=== PATIENT | male | born 1980 | race Caucasian/White ===

== ENCOUNTER → 2019-04-04 | Outpatient (CLI) | payer OTHER ==
[~2019-04-04] MED LIST: CEPHALEXIN500 M1 PO; HYDROCODONE BIT1 T11 PO; MOTRIN800 MG PO; NORFLEX100 MG PO; PREDNICOT20 MG PO
== END | disposition home or self-care (01) ==
LOC: MRI 13:51
DX: M47.812 Spondylosis without myelopathy or radiculopathy, cervical region (principal)

== ENCOUNTER → 2019-04-15 | Outpatient (CLI) | payer OTHER | END | disposition home or self-care (01) | LOC: RAD 10:15 | DX: M25.511 Pain in right shoulder (principal) ==

== ENCOUNTER → 2019-05-09 | Outpatient (CLI) | payer OTHER ==
[2019-05-09 09:04] LABS: BASO % 0.4 % (0.0-1.0); EOS % 0.1 % (1.0-4.0); HEMATOCRIT 47.5 % (42.0-52.0); HEMOGLOBIN 16.2 g/dl (14.0-18.0); LYMPH # 1.2 10*3/uL (1.3-4.4); LYMPH % 17.7 % (27.0-41.0); MEAN CELL VOLUME 91.7 fl (80.0-94.0); MEAN CORPUSCULAR HGB 31.3 pg (27.0-31.0); MEAN CORPUSCULAR HGB CONC 34.1 g/dl (33.0-37.0); MONO # 0.3 10*3/uL (0.1-1.0); MONO % 4.7 % (3.0-9.0); NEUT # 5.2 10*3/uL (2.3-7.9); NEUT % 76.8 % (47.0-73.0); PLATELET COUNT AUTOMATED 200 10*3/uL (130-400); RED BLOOD COUNT 5.18 10*6/uL (4.50-5.90); RED CELL DISTRI WIDTH 12.7 % (0-14.5); WHITE BLOOD COUNT 6.8 10*3/uL (4.8-10.8)
[2019-05-09 09:52] LABS: ALBUMIN 4.5 gm/dl (3.1-4.5); BUN 11 mg/dl (7-24); CHLORIDE 102 mmol/L (98-107); SODIUM 139 mmol/L (136-145)
[2019-05-09 09:54] LABS: CPK 453 U/L (39-308)
[2019-05-09 10:02] LABS: ALKALINE PHOSPHATASE 42 U/L (45-117); CHOLESTEROL 189 mg/dL (<200); CREATININE 1.19 mg/dL (0.70-1.30); HDL CHOLESTEROL 49 mg/dl (40-60); IRON 105 ug/dL (65-175); LDL CHOLESTEROL 129 mg/dL (9-159); SGOT/AST 41 IU/L (3-35); SGPT/ALT 55 U/L (12-78); TOTAL IRON BINDING CAPACITY 360 ug/dl (250-450); TOTAL PROTEIN 8.1 gm/dL (6.4-8.2); TRIGLYCERIDES 55 mg/dl (<150); VLDL CHOLESTEROL 11 mg/dL (6-40)
[2019-05-09 10:41] LABS: VITAMIN D, 25-HYDROXY 24.7 ng/mL (30-100)
[2019-05-10 16:06] LABS: FREE KAPPA LIGHT CHAINS 7.6 mg/L (3.3-19.4); FREE LAMBDA LIGHT CHAINS 10.2 mg/L (5.7-26.3); KAPPA/LAMBDA RATIO 0.75 (0.26-1.65)
[2019-05-14 14:07] LABS: HU ANTIBODIES <1:10 titer (.)
== END | disposition home or self-care (01) ==
LOC: LAB 08:47
PROVIDERS: Nurse Practitioner Family
DX: Z13.220 Encounter for screening for lipoid disorders (principal); E55.9 Vitamin D deficiency, unspecified; M62.81 Muscle weakness (generalized); R53.83 Other fatigue; D64.9 Anemia, unspecified

== ENCOUNTER → 2019-08-08 | Outpatient (CLI) | payer OTHER | END | disposition home or self-care (01) | LOC: MRI 08-06 11:00 | DX: G12.20 Motor neuron disease, unspecified (principal) ==

== ENCOUNTER → 2020-03-22 | Outpatient (CLI) | payer OTHER | END | disposition home or self-care (01) | LOC: COVID19 11:20 | PROVIDERS: ATTEND Family Medicine | DX: U07.1 COVID-19 (principal) ==

== ENCOUNTER → 2020-05-28 | Outpatient (CLI) | payer OTHER ==
[2020-05-28 14:30] LABS: BASO % 0.5 % (0.0-1.0); EOS # 0.1 10*3/uL (0.0-0.4); EOS % 1.1 % (1.0-4.0); HEMATOCRIT 45.8 % (42.0-52.0); LYMPH # 1.5 10*3/uL (1.3-4.4); LYMPH % 27.3 % (27.0-41.0); MEAN CELL VOLUME 91.6 fl (80.0-94.0); MEAN CORPUSCULAR HGB CONC 33.8 g/dl (33.0-37.0); MEAN PLATELET VOLUME 10.5 fl (9.6-12.3); MONO # 0.5 10*3/uL (0.1-1.0); MONO % 9.7 % (3.0-9.0); NEUT # 3.4 10*3/uL (2.3-7.9); NEUT % 61.2 % (47.0-73.0); PLATELET COUNT AUTOMATED 183 10*3/uL (130-400); RED CELL DISTRI WIDTH 13.7 % (0-14.5); WHITE BLOOD COUNT 5.6 10*3/uL (4.8-10.8)
[2020-05-28 15:02] LABS: ALBUMIN 4.1 gm/dl (3.1-4.5); BUN 12 mg/dl (7-24); CHLORIDE 106 mmol/L (98-107); CHOLESTEROL 188 mg/dL (<200); CREATININE 0.86 mg/dL (0.70-1.30); HDL CHOLESTEROL 49 mg/dl (40-60); LDL CHOLESTEROL 128 mg/dL (9-159); POTASSIUM 3.7 mmol/L (3.5-5.1); SGOT/AST 38 IU/L (3-35); SGPT/ALT 69 U/L (12-78); SODIUM 141 mmol/L (136-145); TOTAL PROTEIN 7.7 gm/dL (6.4-8.2); TRIGLYCERIDES 55 mg/dl (<150); VLDL CHOLESTEROL 11 mg/dL (6-40)
[2020-05-28 15:10] LABS: ALKALINE PHOSPHATASE 39 U/L (45-117)
[2020-05-28 15:21] LABS: VITAMIN D, 25-HYDROXY 23.4 ng/mL (30-100)
== END | disposition home or self-care (01) ==
LOC: LAB 13:45
PROVIDERS: ATTEND Physician Assistant
DX: M25.511 Pain in right shoulder (principal); M54.2 Cervicalgia; G12.21 Amyotrophic lateral sclerosis; M62.81 Muscle weakness (generalized)

== ENCOUNTER → 2020-07-22 | Outpatient (CLI) | payer OTHER | LOC: LAB 09:25 | PROVIDERS: ATTEND Psychiatry & Neurology Clinical Neurophysiology | DX: G12.21 Amyotrophic lateral sclerosis (principal) ==

== ENCOUNTER → 2020-12-04 | Outpatient (CLI) | payer OTHER, MEDICARE | END | disposition home or self-care (01) | LOC: LAB 12-03 14:40 | PROVIDERS: ATTEND Chiropractor | DX: A69.20 Lyme disease, unspecified (principal) ==

== ENCOUNTER → 2021-04-15 | Outpatient (CLI) | payer MEDICARE, MEDICAID ==
[2021-04-15 12:34] LABS: BASO % 0.5 % (0.0-1.0); EOS # 0.1 10*3/uL (0.0-0.4); EOS % 1.2 % (1.0-4.0); HEMATOCRIT 45.9 % (42.0-52.0); LYMPH # 1.1 10*3/uL (1.3-4.4); LYMPH % 20.1 % (27.0-41.0); MEAN CELL VOLUME 89.1 fl (80.0-94.0); MEAN CORPUSCULAR HGB 30.5 pg (27.0-31.0); MEAN CORPUSCULAR HGB CONC 34.2 g/dl (33.0-37.0); MEAN PLATELET VOLUME 9.9 fl (9.6-12.3); MONO # 0.5 10*3/uL (0.1-1.0); MONO % 7.9 % (3.0-9.0); NEUT % 70.1 % (47.0-73.0); PLATELET COUNT AUTOMATED 197 10*3/uL (130-400); RED BLOOD COUNT 5.15 10*6/uL (4.50-5.90); RED CELL DISTRI WIDTH 13.1 % (0-14.5); WHITE BLOOD COUNT 5.7 10*3/uL (4.8-10.8)
[2021-04-15 12:51] LABS: ALBUMIN 4.2 gm/dl (3.1-4.5); TOTAL PROTEIN 7.7 gm/dL (6.4-8.2)
[2021-04-15 12:54] LABS: ALBUMIN 4.2 gm/dl (3.1-4.5); ALKALINE PHOSPHATASE 40 U/L (45-117); BUN 11 mg/dl (7-24); CHLORIDE 104 mmol/L (98-107); CREATININE 0.75 mg/dL (0.70-1.30); IRON 119 ug/dL (65-175); POTASSIUM 3.6 mmol/L (3.5-5.1); SGOT/AST 28 IU/L (3-35); SGPT/ALT 40 U/L (12-78); SODIUM 136 mmol/L (136-145); T3 UPTAKE 37 % (31-39); THYROXINE (T4) TOTAL 9.2 ug/dl (4.5-12.1); TOTAL IRON BINDING CAPACITY 297 ug/dl (250-450); TOTAL PROTEIN 7.8 gm/dL (6.4-8.2)
[2021-04-15 13:27] LABS: FERRITIN 351.3 ng/mL (22.0-322.0); VITAMIN D, 25-HYDROXY 45.2 ng/mL (30-100)
[2021-04-16 08:08] LABS: TOTAL T3 (TT3) 93 ng/dL (71-180)
[2021-04-17 13:06] LABS: TESTOSTERONE FREE, (DIRECT) 11.3 pg/mL (8.7-25.1)
== END | disposition home or self-care (01) ==
LOC: RAD/SH 04-03 10:00 → LAB 10:46
PROVIDERS: Chiropractor; Psychiatry & Neurology Clinical Neurophysiology; ATTEND Physician Assistant
DX: R13.12 Dysphagia, oropharyngeal phase (principal); G12.21 Amyotrophic lateral sclerosis